=== PATIENT | female | born 2000 | race African-American/Black ===

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

== ENCOUNTER 2019-03-17 10:17 | Observation (INO) | payer MEDICAID ==
--- NOTE | 2019-03-17 10:32 | ER Document Report ---
ED Medical Screen (RME) - General Chief Complaint: Abdominal Pain Stated Complaint: STOMACH PAIN Time Seen by Provider: 03/17/19 10:31 Primary Care Provider: CARLOS KITCHEN MD [Primary Care Provider] - Follow up as needed TRAVEL OUTSIDE OF THE [place] IN LAST 30 DAYS: No - HPI Notes: 03/17/19 10:31 Patient is a 19-year-old female with no significant past medical history who pr esents complaining of right upper quadrant abdominal pain described as a dullness that has been present for the past 5 days. Patient has noticed some increase in symptoms with food intake. She is urinating normally and having normal bowel movements. Pain does not radiate otherwise. Denies IRVING, fever, neck pain, URI, CP, SOB, dysuria, back pain, or rash. I have treated and performed a rapid initial assessment of this patient. A comprehensive ED assessment and evaluation of the patient, analysis of test results and completion of medical decision making process will be conducted by additional ED providers. PHYSICAL EXAMINATION: GENERAL: Well-appearing, well-nourished and in no acute distress. A&Ox4. Answers questions appropriately. LUNGS: Breath sounds clear to auscultation bilaterally and equal. No wheezes rales or rhonchi. HEART: Regular rate and rhythm without murmurs, rubs, gallops. ABDOMEN: Soft, nondistended abdomen. No guarding, no rebound. Normal bowel sounds present. No CVA tenderness bilaterally. + mild RUQ tenderness (cannot elicit thorough abd exam w/o bed, however). - Related Data Allergies/Adverse Reactions: No Known Allergies Allergy (Verified 03/17/19 10:20) Past Medical History Renal/ Medical History: Denies: Hx Peritoneal Dialysis Skin Medical History: Reports Hx Eczema Past Surgical History: Reports: Hx Tonsillectomy - Immunizations Immunizations up to date: Yes Hx Diphtheria, Pertussis, Tetanus Vaccination: Yes History of Influenza Vaccine for 04/2017 - 09/2017 Season: No Physical Exam - Vital signs Vitals: Temp Pulse Resp BP Pulse Ox 98.0 F 85 16 99/57 L 98 03/17/19 10:23 03/17/19 10:23 03/17/19 10:23 03/17/19 10:23 03/17/19 10:23 Course - Vital Signs Vital signs: Temp Pulse Resp BP Pulse Ox 98.0 F 85 16 99/57 L 98 03/17/19 10:23 03/17/19 10:23 03/17/19 10:23 03/17/19 10:23 03/17/19 10:23 Doctor's Discharge - Discharge Referrals: CARLOS KITCHEN MD [Primary Care Provider] - Follow up as needed
--- NOTE | 2019-03-17 10:49 | ER Document Report ---
ED GI/ - General Chief Complaint: Abdominal Pain Stated Complaint: STOMACH PAIN Time Seen by Provider: 03/17/19 10:31 Primary Care Provider: CARLOS KITCHEN MD [ACTIVE STAFF] - Follow up as needed Notes: Patient is complaining of pain in her right upper quadrant region for the past 4 to 5 days. She is never had this pain previously. Has been nauseated at times but not vomiting. No diarrhea. No fevers. Patient has never had any abdominal surgeries. She is not on any regular prescription medications for anything. She says the pain is sharp and comes and goes but is mostly there for the past few days. LMP just finished 3 days ago. On no control. Periods have been regular. TRAVEL OUTSIDE OF THE [place] IN LAST 30 DAYS: No - Related Data Allergies/Adverse Reactions: No Known Allergies Allergy (Verified 03/17/19 10:20) Past Medical History - Social History Smoking Status: Current Every Day Smoker Frequency of alcohol use: None Drug Abuse: None Family History: Reviewed & Not Pertinent Patient has suicidal ideation: No Patient has homicidal ideation: No Skin Medical History: Reports Hx Eczema Past Surgical History: Reports: Hx Tonsillectomy - Immunizations Immunizations up to date: Yes Hx Diphtheria, Pertussis, Tetanus Vaccination: Yes Review of Systems - Review of Systems Notes: REVIEW OF SYSTEMS: CONSTITUTIONAL : Denies fever. EENT: Denies eye, ear, nose or mouth or throat pain or other symptoms. CARDIOVASCULAR: Denies chest pain. RESPIRATORY: Denies cough, chest congestion, or shortness of breath. GASTROINTESTINAL: See HPI. GENITOURINARY: Denies difficulty or painful urinating, urinary frequency, blood in urine. MUSCULOSKELETAL: Denies back or neck pain. Denies joint pain or swelling. SKIN: Denies rash or skin lesions. NEUROLOGICAL: Denies LOC or altered mental status. Denies headache. Denies sensory loss or motor deficits. ALL OTHER SYSTEMS REVIEWED AND NEGATIVE. Physical Exam - Vital signs Vitals: Temp Pulse Resp BP Pulse Ox 98.0 F 85 16 99/57 L 98 03/17/19 10:23 03/17/19 10:23 03/17/19 10:23 03/17/19 10:23 03/17/19 10:23 Interpretation: Hypotensive - Patient is very small, only weighing about 110 pounds. Notes: PHYSICAL EXAMINATION: GENERAL: Well-appearing, in no acute distress. Vital signs are all normal. Does not appear to be in pain. HEAD: Atraumatic, normocephalic. EYES: Pupils equal round and reactive to light, extraocular movements intact. ENT: oropharynx clear without exudates. Moist mucous membranes. NECK: Normal range of motion, supple. LUNGS: Breath sounds clear and equal bilaterally. HEART: Regular rate and rhythm without murmurs. ABDOMEN: Soft, only minimal tenderness in the right upper quadrant. No guarding or rebound. No masses. BACK: No tenderness throughout entire back. EXTREMITIES: Normal range of motion without pain. NEUROLOGICAL: Normal speech, normal gait. Normal sensory, motor, and reflex exams. Awake, alert, and oriented x3. Cranial nerves normal. PSYCH: Normal mood, normal affect. SKIN: Warm, dry, no rashes. Course - Re-evaluation Re-evalutation: 03/17/19 15:10 Spoke with surgeon, Dr. Roberts, who is going to admit the patient for surgery tomorrow. - Vital Signs Vital signs: Temp Pulse Resp BP Pulse Ox 98.0 F 85 16 99/57 L 98 03/17/19 10:23 03/17/19 10:23 03/17/19 10:23 03/17/19 10:23 03/17/19 10:23 - Laboratory Result Diagrams: 03/17/19 10:35 03/17/19 10:35 Laboratory results interpreted by me: 03/17/19 03/17/19 10:35 10:35 Potassium 5.2 H Calcium 10.7 H Urine Protein 100 H Urine Ketones TRACE H Urine Urobilinogen 2.0 H - Diagnostic Test Radiology reviewed: Image reviewed, Reports reviewed - Right upper quadrant ultrasound shows cholelithiasis without evidence of cholecystitis. Gallbladder looks normal and all the ducts look normal size. Discharge - Discharge Clinical Impression: Abdominal pain Cholelithiasis Qualifiers: Cholelithiasis location: gallbladder Cholecystitis presence: without cholecystitis Biliary obstruction: without biliary obstruction Qualified Code(s): K80.20 - Calculus of gallbladder without cholecystitis without obstruction Condition: Stable Disposition: ADMITTED INPATIENT Admitting Provider: Surgicalist Unit Admitted: Surgical Floor Referrals: CARLOS KITCHEN MD [ACTIVE STAFF] - Follow up as needed
[2019-03-17 10:52] LABS: ABSOLUTE EOSINOPHILS # (AUTO) 0.5 10^3/uL (0.0-0.6); ABSOLUTE LYMPHOCYTES (AUTO) 1.6 10^3/uL (0.5-4.7); ABSOLUTE MONOCYTES (AUTO) 0.7 10^3/uL (0.1-1.4); ABSOLUTE NEUT (AUTO) 7.2 10^3/uL (1.7-8.2); BASOPHILS % (AUTO) 0.5 % (0-2); EOSINOPHILS % (AUTO) 5.3 % (0-6); HEMATOCRIT 43.3 % (36.0-47.0); HEMOGLOBIN 14.5 g/dL (12.0-15.5); LYMPHOCYTES % (AUTO) 15.8 % (13-45); MEAN CORPUSCULAR HEMOGLOBIN 30.4 pg (27.0-33.4); MEAN CORPUSCULAR HGB CONC 33.5 g/dL (32.0-36.0); MEAN CORPUSCULAR VOLUME 91 fl (80-97); MONOCYTES % (AUTO) 6.6 % (3-13); PLATELET COUNT 283 10^3/uL (150-450); RED BLOOD COUNT 4.78 10^6/uL (3.72-5.28); RED CELL DISTRIBUTION WIDTH 13.8 % (11.5-14.0); SEGMENTED NEUTROPHILS % (AUTO) 71.8 % (42-78); TOTAL CELLS COUNTED % (AUTO) 100 %
[2019-03-17 11:02] LABS: APPEARANCE,URINE SLIGHTLY-CLOUDY; BILIRUBIN,URINE NEGATIVE (NEGATIVE); COLOR,URINE YELLOW; GLUCOSE, URINE NEGATIVE (NEGATIVE); KETONES,URINE TRACE mg/dL (NEGATIVE); LEUKOCYTE ESTERASE,URINE NEGATIVE (NEGATIVE); NITRITE,URINE NEGATIVE (NEGATIVE); PROTEIN,URINE 100 mg/dL (NEGATIVE); URINE SPECIFIC GRAVITY 1.029
[2019-03-17 11:14] LABS: ALBUMIN 4.5 g/dL (3.5-5.0); ALKALINE PHOSPHATASE 90 U/L (38-126); ASPARTATE AMINO TRANSFERASE 23 U/L (14-36); BILIRUBIN,DIRECT 0.3 mg/dL (0.0-0.4); BILIRUBIN,TOTAL 1.2 mg/dL (0.2-1.3); TOTAL PROTEIN 7.5 g/dL (6.3-8.2)
--- NOTE | 2019-03-17 12:18 | RADIOLOGY REPORT (SQ) ---
EXAM DESCRIPTION: U/S ABDOMEN LIMITED W/O DOP COMPLETED DATE/TIME: 03/17/2019 12:08 pm REASON FOR STUDY: RUQ pain COMPARISON: 11/07/2018 TECHNIQUE: Dynamic and static grayscale images acquired of the abdomen and recorded on PACS. Additio nal selected color Doppler and spectral images recorded. LIMITATIONS: None. FINDINGS: PANCREAS: No masses. Visualized pancreatic duct normal caliber. LIVER: No masses. Echotexture normal. LIVER VASCULATURE: Normal directional flow of the main portal vein and hepatic veins. GALLBLADDER: Cholelithiasis. No wall thickening or pericholecystic fluid. ULTRASOUND-DETECTED DAWSON'S SIGN: Negative. INTRAHEPATIC DUCTS AND COMMON DUCT: CBD and intrahepatic ducts normal caliber. No filling defects. INFERIOR VENA CAVA: Normal flow. AORTA: No aneurysm. RIGHT KIDNEY: Normal size measuring 9.8 cm. . Normal echogenicity. No solid or suspicious masses. N o hydronephrosis. No calcifications. PERITONEAL AND RIGHT PLEURAL SPACE: No ascites or effusions. OTHER: No other significant findings. IMPRESSION: Cholelithiasis without secondary evidence of acute cholecystitis. TECHNICAL DOCUMENTATION: JOB ID: [id number]- All Rights Reserved Reading location - IP/workstation name: [email or web address]
[2019-03-17] MEDS ORDERED: NORMAL SALINE 1000 ML 1,000 ML IV PRN (14:10)
[2019-03-17] MEDS ORDERED: ONDANSETRON HCL INJ/PF 4 MG/2 ML SDV IV PRN (14:10)
--- NOTE | 2019-03-17 14:10 | PDOC H&P ---
History of Present Illness Admission Date/PCP: TWYLA TATE MD 03/17/19 Patient complains of: RUQ abdominal pain History of Present Illness: GEORGIA CHAPPELL is a 19 year old female healthy with a 5 day hx of RUQ abdominal pain, nausea, presented to ED with above sx and an US of the gallbladder was done significant for cholelithiasis. Her blood work (CBC and CMP) is normal except for slightly elevated lipase. Currently, she is pain free. Past Medical History Skin Medical History: Reports: Eczema Past Surgical History Past Surgical History: Reports: Tonsillectomy Social History Smoking Status: Current Every Day Smoker Family History Family History: Reviewed & Not Pertinent Parental Family History Reviewed: No Children Family History Reviewed: No Sibling(s) Family History Reviewed.: No Medication/Allergy Home Medications: Omeprazole Magnesium [Acid Senior Field Engineer] 20 mg PO DAILY 10 Days #10 capsule. 11/07/18 Ranitidine HCl [Zantac] 150 mg PO BID 10 Days #20 tablet 11/07/18 Allergies/Adverse Reactions: No Known Allergies Allergy (Verified 03/17/19 10:20) Physical Exam Vital Signs: Temp Pulse Resp BP Pulse Ox 98.0 F 85 16 99/57 L 98 03/17/19 10:23 03/17/19 10:23 03/17/19 10:23 03/17/19 10:23 03/17/19 10:23 Intake & Output 03/16/19 03/17/19 03/18/19 06:59 06:59 06:59 Weight 51.6 kg General appearance: PRESENT: no acute distress Eye exam: PRESENT: EOMI, PERRLA Mouth exam: PRESENT: moist, neck supple Neck exam: PRESENT: full ROM Respiratory exam: PRESENT: clear to auscultation donnie Cardiovascular exam: PRESENT: RRR GI/Abdominal exam: PRESENT: Beckman's sign - positive, normal bowel sounds, soft, tenderness - RUQ Rectal exam: PRESENT: deferred Extremities exam: PRESENT: full ROM Musculoskeletal exam: PRESENT: full ROM Neurological exam: PRESENT: alert, awake Psychiatric exam: PRESENT: appropriate affect Skin exam: PRESENT: warm Results Laboratory Results: 03/17/19 10:35 03/17/19 10:35 03/17/19 03/17/19 03/17/19 10:35 10:35 10:35 WBC 10.0 RBC 4.78 Hgb 14.5 Hct 43.3 MCV 91 MCH 30.4 MCHC 33.5 RDW 13.8 Plt Count 283 Seg Neutrophils % 71.8 Sodium 142.6 Potassium 5.2 H Chloride 105 Carbon Dioxide 28 Anion Gap 10 BUN 11 Creatinine 0.79 Est GFR ( Amer) > 60 Glucose 97 Calcium 10.7 H Total Bilirubin 1.2 AST 23 Alkaline Phosphatase 90 Total Protein 7.5 Albumin 4.5 Lipase 296.0 Urine Color YELLOW Urine Appearance SLIGHTLY-CLOUDY Urine pH 5.0 Ur Specific [place] 1.029 Urine Protein 100 H Urine Glucose (UA) NEGATIVE Urine Ketones TRACE H Urine Blood NEGATIVE Urine Nitrite NEGATIVE Ur Leukocyte Esterase NEGATIVE Urine WBC (Auto) 3 Urine RBC (Auto) 3 Impressions: Abdomen Ultrasound 03/17/19 10:31 IMPRESSION: Cholelithiasis without secondary evidence of acute cholecystitis. Assessment & Plan - Diagnosis (1) Cholelithiases Qualifiers: Cholelithiasis location: gallbladder Cholecystitis presence: without cholecystitis Biliary obstruction: without biliary obstruction Qualified Code(s): K80.20 - Calculus of gallbladder without cholecystitis without obstruction Is this a current diagnosis for this admission?: Yes - Plan Summary Plan Summary: A/ Symptomatic cholelithiasis Normal blood work US gallbladder shows cholelithiasis without cholecystitis P/ Admit low fat diet NPO after midnight Plan laparoscopic cholecystectomy, possible open, possible cholangiogram in AM Procedure, risks, benefits, alternatives discusse with patient, including bleeding from liver and / or bile duct injury requiring transfer to a tertiary center for open repairp anoop rodrigues were answered and she decided to proceed.
[2019-03-17 15:20] LABS: ANION GAP 10 (5-19); BLOOD UREA NITROGEN 11 mg/dL (7-20); CALCIUM 10.7 mg/dL (8.4-10.2); CARBON DIOXIDE 28 mmol/L (22-30); CHLORIDE 105 mmol/L (98-107); GLUCOSE 97 mg/dL (75-110); POTASSIUM 5.2 mmol/L (3.6-5.0)
[2019-03-17] MEDS: FAMOTIDINE INJ/PF 20 MG/2 ML SDV IV SCH (23:08)
[2019-03-17] MEDS: MORPHINE SULFATE 10 MG/ML INJ IV PRN (23:10)
[2019-03-18 06:01] LABS: ABSOLUTE BASOPHILS # (AUTO) 0.1 10^3/uL (0.0-0.2); ABSOLUTE EOSINOPHILS # (AUTO) 0.7 10^3/uL (0.0-0.6); ABSOLUTE LYMPHOCYTES (AUTO) 1.8 10^3/uL (0.5-4.7); ABSOLUTE MONOCYTES (AUTO) 1.1 10^3/uL (0.1-1.4); BASOPHILS % (AUTO) 0.6 % (0-2); EOSINOPHILS % (AUTO) 7.1 % (0-6); HEMATOCRIT 38.9 % (36.0-47.0); HEMOGLOBIN 12.9 g/dL (12.0-15.5); MEAN CORPUSCULAR HEMOGLOBIN 29.8 pg (27.0-33.4); MEAN CORPUSCULAR HGB CONC 33.2 g/dL (32.0-36.0); MEAN CORPUSCULAR VOLUME 90 fl (80-97); MONOCYTES % (AUTO) 11.2 % (3-13); PLATELET COUNT 284 10^3/uL (150-450); RED BLOOD COUNT 4.33 10^6/uL (3.72-5.28); RED CELL DISTRIBUTION WIDTH 13.5 % (11.5-14.0); SEGMENTED NEUTROPHILS % (AUTO) 62.1 % (42-78); TOTAL CELLS COUNTED % (AUTO) 100 %; WHITE BLOOD COUNT 9.7 10^3/uL (4.0-10.5)
[2019-03-18 06:21] LABS: ALBUMIN 3.9 g/dL (3.5-5.0); ALKALINE PHOSPHATASE 84 U/L (38-126); ANION GAP 6 (5-19); ASPARTATE AMINO TRANSFERASE 23 U/L (14-36); BILIRUBIN,DIRECT 0.2 mg/dL (0.0-0.4); BILIRUBIN,TOTAL 0.4 mg/dL (0.2-1.3); BLOOD UREA NITROGEN 12 mg/dL (7-20); CALCIUM 9.8 mg/dL (8.4-10.2); CARBON DIOXIDE 29 mmol/L (22-30); CHLORIDE 104 mmol/L (98-107); GLUCOSE 74 mg/dL (75-110); TOTAL PROTEIN 6.3 g/dL (6.3-8.2)
[2019-03-18] MEDS ORDERED: FENTANYL CITRATE INJ/PF 100 MCG/2 ML AMPUL ONE (08:56)
[2019-03-18] MEDS ORDERED: MIDAZOLAM 2 MG/2 ML INJ ONE (08:56)
[2019-03-18] MEDS ORDERED: PROPOFOL INJ 200 MG/20 ML VIAL IV ONE (08:57)
[2019-03-18] MEDS: FAMOTIDINE INJ/PF 20 MG/2 ML SDV IV SCH (10:01)
[2019-03-18] MEDS ORDERED: CEFOXITIN 1 GM/D5W RTU 1 GM/50 ML RTUPB IV SCH (11:00)
[2019-03-18] MEDS ORDERED: BUPIVACAINE HCL 0.5%-EPI 1:200000 INJ/PF 30 ML VIAL ONE (11:05)
[2019-03-18] MEDS ORDERED: FENTANYL CITRATE INJ/PF 100 MCG/2 ML AMPUL IV PRN ×3 (11:50)
[2019-03-18] MEDS ORDERED: ONDANSETRON HCL INJ/PF 4 MG/2 ML SDV IV PRN (11:50)
[2019-03-18] MEDS ORDERED: MEPERIDINE HCL/PF INJ 25 MG/1 ML DISP.SYRIN IV PRN (11:50)
[2019-03-18] MEDS ORDERED: DIPHENHYDRAMINE HCL 50 MG/ML VIAL IV PRN (11:50)
[2019-03-18] MEDS ORDERED: OXYCODONE-ACETAMINOPHEN 5-325 MG TABLET PO PRN ×2 (11:50)
[2019-03-18] MEDS ORDERED: PROMETHAZINE HCL INJ 25 MG/1 ML VIAL IV PRN (11:50)
[2019-03-18] MEDS ORDERED: MORPHINE SULFATE 10 MG/ML INJ IV PRN (11:50)
--- NOTE | 2019-03-18 12:39 | Operative Report ---
Nonrecallable Operative Report DATE OF SURGERY: 03/18/19 PREOPERATIVE DIAGNOSIS: symptomatic cholelithiasis POSTOPERATIVE DIAGNOSIS: same OPERATION: laparosocpic cholecystectomy SURGEON: MARC WANG ANESTHESIA: Local - 10 mL lidocaine with epi TISSUE REMOVED OR ALTERED: gallbladder COMPLICATIONS: none ESTIMATED BLOOD LOSS: < 5 mL INTRAOPERATIVE FINDINGS: cholelithiasis PROCEDURE: see dictation
[2019-03-18] MEDS ORDERED: HYDROCODONE/ACETAMINOPHEN 5-325 MG TABLET PO PRN (12:42)
--- NOTE | 2019-03-18 12:44 | Progress Note ---
Provider Note Provider Note: Lap nate performed w/o complications A/ Symptomatic cholelithiasis Lap nate done w/o complications P/ patient can be discharged to home tonight if she fits discharge criteria.
[2019-03-18] MEDS ORDERED: ACETAMINOPHEN 1,000 MG/100 ML RTUPB IV ONE (13:06)
--- NOTE | 2019-03-18 13:40 | OPERATIVE REPORT E ---
Operative Report NAME: GEORGIA CHAPPELL : 2000 AGE: 19Y DATE OF SURGERY: 03/18/2019 ROOM: 532 PREOPERATIVE DIAGNOSIS: Symptomatic cholelithiasis. POSTOPERATIVE DIAGNOSIS: Symptomatic cholelithiasis. OPERATION: Laparoscopic cholecystectomy. SURGEON: MARC WANG M.D. ANESTHESIA: General plus 10 mL of 1% lidocaine with epinephrine. WEB SITE PROJECT MANAGER: None. ESTIMATED BLOOD LOSS: None. COMPLICATIONS: None. DRAINS: None. FLUIDS: 1000 mL. URINE OUTPUT: Not monitored. INDICATION AND FINDINGS: Healthy 19-year-old female who presented to the emergency room complaining of right upper quadrant pain, nausea, vomiting, found to have cholelithiasis. Blood work was within normal limits. The patient was scheduled to undergo laparoscopic cholecystectomy, possible open, possible cholangiogram today. The procedure, risks, benefits, and complications were explained to the patient. She understood all of those, including the possibility of bleeding from the liver and/or injury to the bile ducts which may require transfer for repair to a tertiary center. She understands all of the above, her questions are answered, and she desires to proceed. PROCEDURE: The procedure was done in the operating room. The patient was placed in a supine position. General anesthesia was induced by endotracheal intubation. The abdomen was prepped and draped in the usual sterile fashion. An incision was made just above the umbilicus with a #15 blade. The skin was tented with towel clips. A 5 mm port with Optiview adapter and scope was entered through the incision in the abdominal wall into the peritoneal cavity. CO2 pneumoperitoneum was established. Under direct visualization for insertion of ports, one 12 and two 5 mm ports were inserted in the epigastrium and right upper quadrant of the abdomen. The patient was placed in a reversed Trendelenburg position with the right side elevated. The gallbladder was identified and grasped at the fundus, elevated, and retroflexed. The gallbladder neck was grasped and pulled anteriorly towards the patient's right with exposure of the triangle of Calot. The critical view of safety was obtained. We began by dividing the attachments of the gallbladder medially and laterally and extending the division of the peritoneum along the gallbladder neck and the cystic duct. These were gently dissected. Following this the cystic duct was . The critical view of safety was obtained. The cystic duct was from the cystic artery using right angle dissector. Both of them were doubly clipped proximally and distally and divided with scissors. The gallbladder was transected off the liver bed with hook cautery without difficulty and extracted from the peritoneal cavity with an Endobag. The CO2 pneumoperitoneum was then re-established. The liver bed was examined and no active bleeding was noted. At this point, under direct visualization and using a fascial closure device, a [id number] Vicryl suture was placed across the epigastric fascial defect, and the suture was left untied. All instruments were removed. The CO2 pneumoperitoneum was released. The ports were removed. The fascial defect at the epigastrium was closed with the previously placed 0-Vicryl sutures. The skin incisions were closed with 4-0 Vicryl running subcuticular suture with Dermabond applied. The patient tolerated the procedure well, extubated, transferred to the recovery room in satisfactory condition. DICTATING PHYSICIAN: MARC WANG M.D. [id number] PHY#: [id number] ID: [id number] JOB#: [id number] ACCT: [id number] cc:MARC WANG M.D. > MTDD
[2019-03-18] MEDS ORDERED: ROCURONIUM BROMIDE INJ 50 MG/5 ML VIAL IV ONE (14:00)
[2019-03-18] MEDS ORDERED: DEXAMETHASONE SOD PHOSPHATE INJ 4 MG/1 ML VIAL ONE (14:00)
[2019-03-18] MEDS ORDERED: ONDANSETRON HCL INJ/PF 4 MG/2 ML SDV ONE (14:00)
[2019-03-18] MEDS ORDERED: SUCCINYLCHOLINE CHLORIDE INJ 200 MG/10 ML VIAL ONE (14:00)
[2019-03-18] MEDS ORDERED: METOCLOPRAMIDE HCL INJ/PF 10 MG/2 ML SDV ONE (14:00)
[2019-03-18] MEDS ORDERED: KETOROLAC TROMETHAMINE 60 MG/2 ML SDV ONE (14:00)
[2019-03-18] MEDS: MORPHINE SULFATE 10 MG/ML INJ IV PRN (15:42)
[2019-03-18 21:03] VITALS: BP 109/59
== END 2019-03-18 21:19 | disposition home or self-care (01) ==
LOC: ER 10:17 → EH 15:17 → INTOOBSV 15:17 → 5 17:48
PROVIDERS: ATTEND Surgery
PROC: 0FT44ZZ Resection of Gallbladder, Percutaneous Endoscopic Approach (ICD-10-PCS; principal; 2019-03-18 11:00)
DX: K81.1 Chronic cholecystitis (principal); I95.9 Hypotension, unspecified; F17.200 Nicotine dependence, unspecified, uncomplicated
CPT/HCPCS: 99285; 36415 ×2; 87040; 82962; 83690 ×2; 85025 ×2; 81025; 80053 ×2; 81001; 88304 ×2; 76705; 00790; 47562; G0378 ×3; J2250; J3490 ×2; J1100; J1885; J3010; J0694; J2765; J2270 ×2; J0330; J2405 ×2; J2704; S0028 ×2; J0131; 790

== ENCOUNTER 2019-10-03 20:37 | Emergency (ER) | payer MEDICAID ==
[2019-10-03] MEDS ORDERED: METOCLOPRAMIDE HCL 10 MG TABLET PO ONE (21:25)
--- NOTE | 2019-10-03 21:25 | ER Document Report ---
ED Medical Screen (RME) - General Chief Complaint: Nausea Stated Complaint: NAUSEA,UPSET STOMACH Time Seen by Provider: 10/03/19 21:20 Primary Care Provider: TWYLA TATE MD [Primary Care Provider] - Follow up as needed Mode of Arrival: Ambulatory Information source: Patient Notes: This 19-year-old female with history of ulcers presents to the emergency department with complaints of nausea with generalized abdominal pain for 2 days. she reports she took Zofran this morning without relief of symptoms. As fever vomiting diarrhea. Denies pain with void. Reports vaginal discharge that comes and goes. I have greeted and performed a rapid initial assessment of this patient. A comprehensive ED assessment and evaluation of the patient, analysis of test res ults and completion of the medical decision making process will be conducted by additional ED providers. TRAVEL OUTSIDE OF THE [place] IN LAST 30 DAYS: No - Related Data Allergies/Adverse Reactions: No Known Allergies Allergy (Verified 10/03/19 21:19) Past Medical History Pulmonary Medical History: Reports: Hx Bronchitis Renal/ Medical History: Denies: Hx Peritoneal Dialysis GI Medical History: Reports: Hx Ulcer - stomach Skin Medical History: Reports Hx Eczema Past Surgical History: Reports: Hx Tonsillectomy - Immunizations Immunizations up to date: Yes Hx Diphtheria, Pertussis, Tetanus Vaccination: Yes Physical Exam - Vital signs Vitals: Temp Pulse Resp BP Pulse Ox 99.7 F 82 20 118/75 100 10/03/19 20:43 10/03/19 20:43 10/03/19 20:43 10/03/19 20:43 10/03/19 20:43 Course - Vital Signs Vital signs: Temp Pulse Resp BP Pulse Ox 99.7 F 82 20 118/75 100 10/03/19 20:43 10/03/19 20:43 10/03/19 20:43 10/03/19 20:43 10/03/19 20:43 Doctor's Discharge - Discharge Referrals: TWYLA TATE MD [Primary Care Provider] - Follow up as needed
[2019-10-03 21:56] LABS: ABSOLUTE EOSINOPHILS # (AUTO) 0.1 10^3/uL (0.0-0.6); ABSOLUTE LYMPHOCYTES (AUTO) 1.8 10^3/uL (0.5-4.7); ABSOLUTE MONOCYTES (AUTO) 0.6 10^3/uL (0.1-1.4); ABSOLUTE NEUT (AUTO) 5.5 10^3/uL (1.7-8.2); BASOPHILS % (AUTO) 0.6 % (0-2); EOSINOPHILS % (AUTO) 1.8 % (0-6); HEMATOCRIT 41.8 % (36.0-47.0); LYMPHOCYTES % (AUTO) 22.5 % (13-45); MEAN CORPUSCULAR HEMOGLOBIN 29.9 pg (27.0-33.4); MEAN CORPUSCULAR HGB CONC 33.5 g/dL (32.0-36.0); MEAN CORPUSCULAR VOLUME 89 fl (80-97); MONOCYTES % (AUTO) 7.1 % (3-13); PLATELET COUNT 302 10^3/uL (150-450); RED BLOOD COUNT 4.69 10^6/uL (3.72-5.28); RED CELL DISTRIBUTION WIDTH 15.7 % (11.5-14.0); TOTAL CELLS COUNTED % (AUTO) 100 %; WHITE BLOOD COUNT 8.1 10^3/uL (4.0-10.5)
[2019-10-03 22:00] LABS: APPEARANCE,URINE SLIGHTLY-CLOUDY; BILIRUBIN,URINE NEGATIVE (NEGATIVE); COLOR,URINE YELLOW; GLUCOSE, URINE NEGATIVE (NEGATIVE); KETONES,URINE 80 mg/dL (NEGATIVE); LEUKOCYTE ESTERASE,URINE NEGATIVE (NEGATIVE); NITRITE,URINE NEGATIVE (NEGATIVE); PROTEIN,URINE 100 mg/dL (NEGATIVE)
[2019-10-03 22:13] LABS: ALBUMIN 4.6 g/dL (3.5-5.0); ALKALINE PHOSPHATASE 97 U/L (38-126); ANION GAP 9 (5-19); ASPARTATE AMINO TRANSFERASE 23 U/L (14-36); BILIRUBIN,DIRECT 0.1 mg/dL (0.0-0.4); BLOOD UREA NITROGEN 12 mg/dL (7-20); CALCIUM 9.9 mg/dL (8.4-10.2); CARBON DIOXIDE 24 mmol/L (22-30); CHLORIDE 107 mmol/L (98-107); GLUCOSE 73 mg/dL (75-110); POTASSIUM 4.3 mmol/L (3.6-5.0); TOTAL PROTEIN 8.1 g/dL (6.3-8.2)
--- NOTE | 2019-10-04 00:20 | ER Document Report ---
ED General - General Chief Complaint: Nausea Stated Complaint: NAUSEA,UPSET STOMACH Time Seen by Provider: 10/03/19 21:20 Primary Care Provider: TWYLA TATE MD [Primary Care Provider] - Follow up as needed Mode of Arrival: Ambulatory Information source: Patient Notes: 19-year-old female presents to the emergency department with a complaint of nausea. She states symptoms are ongoing for the past day she ate at a local restaurant today and was doing well until this evening when she is now developing the nausea. She has had no vomiting. And denies fever. She also denies urinary symptoms dysuria, frequency, or urgency. TRAVEL OUTSIDE OF THE [place] IN LAST 30 DAYS: No - Related Data Allergies/Adverse Reactions: No Known Allergies Allergy (Verified 10/03/19 21:19) Past Medical History - General Information source: Patient - Social History Smoking Status: Former Smoker Frequency of alcohol use: Social Drug Abuse: None Family History: Reviewed & Not Pertinent Patient has suicidal ideation: No Patient has homicidal ideation: No Pulmonary Medical History: Reports: Hx Bronchitis Renal/ Medical History: Denies: Hx Peritoneal Dialysis GI Medical History: Reports: Hx Ulcer - stomach Skin Medical History: Reports Hx Eczema Past Surgical History: Reports: Hx Tonsillectomy - Immunizations Immunizations up to date: Yes Hx Diphtheria, Pertussis, Tetanus Vaccination: Yes Review of Systems - Review of Systems Notes: Constitutional: Negative for fever. HENT: Negative for sore throat. Eyes: Negative for visual changes. Cardiovascular: Negative for chest pain. Respiratory: Negative for shortness of breath. Gastrointestinal: + Nausea + abdominal pain Genitourinary: Negative for dysuria. Musculoskeletal: Negative for back pain. Skin: Negative for rash. Neurological: Negative for headaches, weakness or numbness. 10 point ROS negative except as marked above and in HPI. Physical Exam - Vital signs Vitals: Temp Pulse Resp BP Pulse Ox 99.7 F 82 20 118/75 100 10/03/19 20:43 10/03/19 20:43 10/03/19 20:43 10/03/19 20:43 10/03/19 20:43 - Notes Notes: PHYSICAL EXAMINATION: Physical Exam: General: Well-nourished well-developed in no acute distress HEENT: NC/AT, pupils equal round and reactive to light, MM moist,nares clear, oropharynx clear, airway patent Neck: supple, no adenopathy, no masses. Good range of motion Lungs: clear, no wheezing, no rales no rhonchi CVS: Regular rate and rhythm no murmur gallop or rub Abdomen: Soft, active, mild epigastric tenderness r, no masses, no hepatosplenomegaly Ext: No edema, clubbing or cyanosis. Neuro: Alert and responsive, moving all 4 extremities on command, cranial nerves intact, no focal findings Skin: Intact no open lesions, no rash PSYCH: Normal mood, normal affect. Course - Vital Signs Vital signs: Temp Pulse Resp BP Pulse Ox 99.7 F 82 20 118/75 100 10/03/19 20:43 10/03/19 20:43 10/03/19 20:43 10/03/19 20:43 10/03/19 20:43 - Laboratory Result Diagrams: 10/03/19 21:30 10/03/19 21:30 Laboratory results interpreted by me: 10/03/19 10/03/19 10/03/19 21:30 21:30 21:30 RDW 15.7 H Glucose 73 L Urine Protein 100 H Urine Ketones 80 H Urine Blood SMALL H Urine Urobilinogen 2.0 H 10/04/19 00:17 I have reviewed laboratory data and used this information for the treatment decisions regarding the patient. Discharge - Discharge Clinical Impression: Abdominal pain, epigastric, Nausea Condition: Good Disposition: HOME, SELF-CARE Instructions: Antinausea Medication ([facility]) Additional Instructions: You were diagnosed with gastritis with abdominal pain and nausea. Prescription for omeprazole, Phenergan, and Bentyl are given in the emergency department. Also suggest you use a probiotic which may help to improve your symptoms and promote good GI health. HOME CARE INSTRUCTIONS & INFORMATION: Thank you for choosing us for your medical needs. We hope you're satisfied with the care you received. After you leave, you must properly care for your problem and, at the same time, observe its progress. Any condition can change. Some illnesses can change rapidly over hours or days. If your condition worsens, return to the Emergency Department or see your physician promptly. ABOUT YOUR X-RAYS AND EKG'S: If you had an EKG or X-rays taken, they have been read by the Emergency Physician. The X-rays and EKG's will also be read by a Radiologist or [facility] [place] within 24 hours. If discrepancies are noted, you will be notified by telephone. Please be certain the ED has a correct telephone number & address where you can be reached. Also, realize that some fractures or abnormalities do not show up on initial X-rays. If your symptoms continue, see your physician. ABOUT YOUR LABORATORY TEST: If you had laboratory tests, the results have been reviewed by the Emergency Physician. Some test results (for example cultures) may not be available for several days. You will be contacted if any test result shows you need additional treatment. Please be certain the ED has a correct telephone number and address where you can be reached. ABOUT YOUR MEDICATIONS: You will receive instructions on how to take your medicine on the prescription label you receive. Additional information may be provided by the Pharmacy. If you have questions afterwards, call the ED for clarification or further instructions. Some prescribed medications may cause drowsiness. Do not perform tasks such as driving a car or operating machinery without consulting your Pharmacist. If you feel you need a refill of pain medication, your condition will need re-evaluation. Please do not call for a refill of any medication. ABOUT YOUR SIGNATURE: Signature of this document acknowledges to followin. Understanding that you received emergency treatment and that you may be released before al medical problems are known or treated. Please be certain the ED has a correct phone number & address where you can be reached. 2. Acknowledgement that you will arrange for follow-up care as recommended. 3. Authorization for the Emergency Physician to provide information to your follow-up Physician in order to maximize your care. AT ANY TIME, IF YOUR SYMPTOMS CHANGE SIGNIFICANTLY OR WORSEN OR YOU DEVELOP NEW SYMPTOMS, RETURN TO THE EMERGENCY DEPARTMENT IMMEDIATELY FOR RE-EVALUATION. OUR GOAL IS TO PROVIDE EXCELLENT MEDICAL CARE! WE HOPE THAT WE HAVE MET YOUR EXPECTATIONS DURING YOUR EMERGENCY DEPARTMENT VISIT AND THAT YOU FEEL YOU HAVE RECEIVED EXCELLENT CARE! Prescriptions: Dicyclomine HCl [Bentyl 10 mg Capsule] 1 cap PO TID #20 cap Omeprazole 40 mg PO DAILY #15 capsule. Promethazine HCl [Phenergan 25 mg Tablet] 1 - 2 tab PO Q6H PRN #15 tablet PRN Reason: Referrals: TWYLA TATE MD [Primary Care Provider] - Follow up as needed
[2019-10-04 01:02] VITALS: BP 110/63
== END 2019-10-04 01:01 | disposition home or self-care (01) ==
LOC: ER 20:37
DX: R11.0 Nausea (principal); R10.13 Epigastric pain; R10.816 Epigastric abdominal tenderness; Z87.891 Personal history of nicotine dependence
CPT/HCPCS: 99284; 36415; 85025; 80053; 81001; 81025; J3490